=== PATIENT | female | born 1995 | race Caucasian/White ===

== ENCOUNTER 2020-04-02 04:32 | Emergency (ER) | payer BC, OTHER ==
[2020-04-02] MEDS ORDERED: Acetaminophen/HYDROcodone 325-5 MG Tab PO ONE ×2 (04:33→04:59)
[2020-04-02] MEDS ORDERED: Ketorolac 60 MG/2 ML SDV IM ONE (04:58)
[2020-04-02] MEDS ORDERED: hydrOXYzine HCl 50 MG/ML SDV IM ONE (04:59)
--- NOTE | 2020-04-02 05:19 | EDM.PDOC ---
ED HPI GENERAL MEDICAL PROBLEM - General Chief Complaint: Headache Stated Complaint: MIGRAINE Time Seen by Provider: 04/02/20 05:05 Source of Information: Reports: Patient History Limitations: Reports: No Limitations - History of Present Illness INITIAL COMMENTS - FREE TEXT/NARRATIVE: Patient presented to the ED because of headache over the bi frontal area, throbbing with associated nausea and photophobia. She was seen at the clinic yesterday and was given Zofran ODT 4 mg and toradol 60 mg with mild improvement of her headache. there is n fever/chills, or neck stiffness. Treatments REGIONAL COORDINATOR: Reports: NSAIDS Headache Pain Score (Numeric/FACES): 9 - Related Data Allergies Allergy/AdvReac Type Severity Reaction Status Date / Time cephalexin monohydrate Allergy Hives Verified 04/02/20 04:39 [From Keflex] Home Meds: Home Meds SUMAtriptan 100 mg PO ASDIRECTED PRN 04/23/16 [History] FLUoxetine HCl [Prozac] 40 mg PO BEDTIME 04/02/20 [History] Linaclotide [Linzess] 145 mg DAILY 04/02/20 [History] Norethindrone-Ethin. 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 Musculoskeletal History: Reports: None Neurological History: Reports: Concussion, Headaches, Chronic, Migraines Psychiatric History: Reports: Anxiety, Depression Dermatologic History: Reports: Other (See Below) Other Dermatologic History: Had an I&D done on a facial cyst that was positive for MRSA - Infectious Disease History Infectious Disease History: Reports: MRSA, Shingles - Past Surgical History HEENT Surgical History: Reports: Adenoidectomy, Oral Surgery, Tonsillectomy GI Surgical History: Reports: Colonoscopy Musculoskeletal Surgical History: Reports: Arthroscopic Knee, Other (See Below) Other Musculoskeletal Surgeries/Procedures:: bilat knee scope x2 Social & Family History - Family History Family Medical History: Noncontributory - Tobacco Use Smoking Status *Q: Former Smoker Years of Tobacco use: 4 Used Tobacco, but Quit: Yes Month/Year Tobacco Last Used: 2019 - Caffeine Use Caffeine Use: Reports: Coffee, Soda - Recreational Drug Use Recreational Drug Use: No - Living Situation & Occupation Living situation: Reports: Single ED ROS GENERAL - Review of Systems Review Of Systems: See Below Constitutional: Reports: No Symptoms HEENT: Reports: No Symptoms Respiratory: Reports: No Symptoms Cardiovascular: Reports: No Symptoms Endocrine: Reports: No Symptoms GI/Abdominal: Reports: Nausea : Reports: No Symptoms Musculoskeletal: Reports: No Symptoms Skin: Reports: No Symptoms Neurological: Reports: Headache Psychiatric: Reports: No Symptoms - Physical Exam Exam: See Below Exam Limited By: No Limitations General Appearance: Alert, No Apparent Distress Eye Exam: Bilateral Eye: PERRL Ears: Normal External Exam, Normal Canal, Hearing Grossly Normal Nose: Normal Inspection, Normal Mucosa Throat/Mouth: Normal Inspection, Normal Lips, Normal Teeth Head Exam: Atraumatic, Normocephalic Neck: Normal Inspection, Supple, Non-Tender, Full Range of Motion Respiratory/Chest: No Respiratory Distress, Lungs Clear, Normal Breath Sounds Cardiovascular: Normal Peripheral Pulses, Regular Rate, Rhythm, No Edema, No Gallop GI/Abdominal: Normal Bowel Sounds, Soft, Non-Tender, No Organomegaly, No Distention Neuro Exam (Abbreviated): Alert, Oriented, CN II-XII Intact, Normal Cognition, Normal Gait, Normal Reflexes, No Motor/Sensory Deficits Course - Vital Signs Text/Narrative:: Toradol 60 mg IM Vistaril 50 mg IM [place] 5/325, 2 po x1 Last Recorded V/S: Last Vital Signs Temp 36.8 C 04/02/20 04:32 Pulse 96 04/02/20 04:32 Resp 18 04/02/20 04:32 BP 108/69 04/02/20 04:32 Pulse Ox 98 04/02/20 04:32 - Orders/Labs/Meds Meds: Medications Discontinued Medications Generic Name Dose Route Start Last Admin Trade Name Freq PRN Reason Stop Dose Admin Hydrocodone Bitart/Acetaminophen 2 tab 04/02/20 04:59 04/02/20 05:05 [place] 325-5 Mg PO 04/02/20 05:00 2 tab ONETIME ONE Administration Hydroxyzine HCl 50 mg 04/02/20 04:59 04/02/20 05:06 Vistaril IM 04/02/20 05:00 50 mg ONETIME ONE Administration Ketorolac Tromethamine 60 mg 04/02/20 04:58 04/02/20 05:06 Toradol IM 04/02/20 04:59 60 mg ONETIME ONE Administration Departure - Departure Time of Disposition: 05:45 Disposition: Home, Self-Care 01 Condition: Good Clinical Impression: Migraine Qualifiers: Migraine type: without aura Status migrainosus presence: without status migrainosus Intractability: not intractable Qualified Code(s): G43.009 - Migraine without aura, not intractable, without status migrainosus - Discharge Information Prescriptions: hydrOXYzine pamoate [Vistaril] 50 mg PO Q6H PRN #30 cap PRN Reason: Nausea Instructions: Migraine Headache Referrals: Mary Mcdaniel NP [Primary Care Provider] - Forms: ED Department Discharge Additional Instructions: Please read discharge instructions on migraine Take ibuprofen 800 mg with tylenol 1000 mg every 8 hours as needed for pain Vistaril 50 mg every 6 hours as needed for nausea [place] 5/325, 1-2 tablets every 4-6 hrs as needed for pain. Take [place] with Ibuprofen for better pain relief. Follow up as needed Sepsis Event Note (ED) - Evaluation Sepsis Screening Result: No Definite Risk - Focused Exam Vital Signs: Vital Signs Temp Pulse Resp BP Pulse Ox 04/02/20 04:32 36.8 C 96 18 108/69 98
[2020-04-02 05:47] VITALS: BP 100/61; PULSE 86
== END 2020-04-02 05:38 | disposition home or self-care (01) ==
LOC: FB.ED 04:32
DX: G43.009 Migraine without aura, not intractable, without status migrainosus (principal); F41.9 Anxiety disorder, unspecified; F32.9 Major depressive disorder, single episode, unspecified; Z87.891 Personal history of nicotine dependence; Z88.1 Allergy status to other antibiotic agents; Z79.899 Other long term (current) drug therapy
CPT/HCPCS: 96372; 99283; A9270; J1885; J3410

== ENCOUNTER 2020-04-30 21:15 | Emergency (ER) | payer BC ==
[2020-04-30] MEDS ORDERED: Ondansetron 8 MG Tab.DIS PO ONE (21:46)
[2020-04-30] MEDS ORDERED: Ketorolac 60 MG/2 ML SDV IM ONE (21:47)
[2020-04-30] MEDS ORDERED: diphenhydrAMINE 50 MG/ML SDV IM ONE (21:53)
[2020-04-30] MEDS ORDERED: Cyclobenzaprine 10 MG Tab PO ONE (21:54)
--- NOTE | 2020-04-30 22:05 | EDM.PDOC ---
ED HPI GENERAL MEDICAL PROBLEM - General Chief Complaint: Headache Stated Complaint: MIGRAINE Time Seen by Provider: 04/30/20 21:30 Source of Information: Reports: Patient History Limitations: Reports: No Limitations - History of Present Illness INITIAL COMMENTS - FREE TEXT/NARRATIVE: has had right side RODRIGUEZ behind the right eye for the past one week. Today it got worse with pain in the posterior neck with radiation to the occipital region and pain behind the eye, states similar to prior migraine symptoms. Has taken Vistaril , tylenol, states she could not find Imitrex Onset: Today Onset Date: 04/23/20 Duration: Getting Worse Location: Reports: Head Quality: Reports: Ache, Dull Severity: Moderate - Related Data Allergies Allergy/AdvReac Type Severity Reaction Status Date / Time cephalexin monohydrate Allergy Hives Verified 04/02/20 04:39 [From Keflex] Home Meds: Home Meds SUMAtriptan 100 mg PO ASDIRECTED PRN 04/23/16 [History] FLUoxetine HCl [Prozac] 40 mg PO BEDTIME 04/02/20 [History] Linaclotide [Linzess] 145 mg DAILY 04/02/20 [History] Norethindrone-Ethin. 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 Musculoskeletal History: Reports: None Neurological History: Reports: Concussion, Headaches, Chronic, Migraines Psychiatric History: Reports: Anxiety, Depression Dermatologic History: Reports: Other (See Below) Other Dermatologic History: Had an I&D done on a facial cyst that was positive for MRSA - Infectious Disease History Infectious Disease History: Reports: MRSA, Shingles - Past Surgical History HEENT Surgical History: Reports: Adenoidectomy, Oral Surgery, Tonsillectomy GI Surgical History: Reports: Colonoscopy Musculoskeletal Surgical History: Reports: Arthroscopic Knee, Other (See Below) Other Musculoskeletal Surgeries/Procedures:: bilat knee scope x2 Social & Family History - Family History Family Medical History: Noncontributory - Caffeine Use Caffeine Use: Reports: Coffee, Soda - Living Situation & Occupation Living situation: Reports: Single ED ROS GENERAL - Review of Systems Review Of Systems: See Below Constitutional: Reports: No Symptoms HEENT: Reports: No Symptoms Respiratory: Reports: No Symptoms Cardiovascular: Reports: No Symptoms Endocrine: Reports: No Symptoms GI/Abdominal: Reports: No Symptoms Neurological: Reports: Headache Psychiatric: Reports: No Symptoms Hematologic/Lymphatic: Reports: No Symptoms Immunologic: Reports: No Symptoms - Physical Exam Exam: See Below Exam Limited By: No Limitations General Appearance: Alert, WD/WN, No Apparent Distress Eye Exam: Bilateral Eye: EOMI Ears: Normal External Exam Nose: Normal Inspection Throat/Mouth: Normal Inspection, Normal Oropharynx Head Exam: Atraumatic, Normocephalic Neck: Supple, Non-Tender Respiratory/Chest: Lungs Clear, Normal Breath Sounds Cardiovascular: Regular Rate, Rhythm GI/Abdominal: Soft, Non-Tender Neuro Exam (Abbreviated): Alert, Oriented, CN II-XII Intact Back Exam: Normal Inspection, Full Range of Motion Extremities: Normal Inspection, Normal Range of Motion Course - Orders/Labs/Meds Orders: Active Orders 24 hr Category Date Time Status Cyclobenzaprine [Flexeril] Med 04/30/20 21:54 Once 10 mg PO ONETIME ONE diphenhydrAMINE [Benadryl] Med 04/30/20 21:53 Once 25 mg IM ONETIME ONE Meds: Medications Discontinued Medications Generic Name Dose Route Start Last Admin Trade Name Freq PRN Reason Stop Dose Admin Ketorolac Tromethamine 60 mg 04/30/20 21:47 Toradol IM 04/30/20 21:48 ONETIME ONE Ondansetron HCl 8 mg 04/30/20 21:46 Zofran Odt PO 04/30/20 21:47 ONETIME ONE Departure - Departure Time of Disposition: 10:10 Disposition: Home, Self-Care 01 Condition: Good Clinical Impression: Migraine - Discharge Information *PRESCRIPTION DRUG MONITORING PROGRAM REVIEWED*: Not Applicable *COPY OF PRESCRIPTION DRUG MONITORING REPORT IN PATIENT ABDULKADIR: Not Applicable Referrals: Mary Mcdaniel NP [Primary Care Provider] - Forms: ED Department Discharge Additional Instructions: Continue with home medications as prescribed - My Orders Last 24 Hours: My Active Orders 04/30/20 21:53 diphenhydrAMINE [Benadryl] 25 mg IM ONETIME ONE 04/30/20 21:54 Cyclobenzaprine [Flexeril] 10 mg PO ONETIME ONE - Assessment/Plan Last 24 Hours: My Active Orders 04/30/20 21:53 diphenhydrAMINE [Benadryl] 25 mg IM ONETIME ONE 04/30/20 21:54 Cyclobenzaprine [Flexeril] 10 mg PO ONETIME ONE
[2020-05-01 01:22] VITALS: BP 116/52; PULSE 74
== END 2020-04-30 22:30 | disposition home or self-care (01) ==
LOC: FB.ED 21:15
DX: G43.909 Migraine, unspecified, not intractable, without status migrainosus (principal); F41.9 Anxiety disorder, unspecified; F32.9 Major depressive disorder, single episode, unspecified; Z88.1 Allergy status to other antibiotic agents; Z79.899 Other long term (current) drug therapy
CPT/HCPCS: 96372; 99283; A9270; J1200; J1885

== ENCOUNTER 2020-08-08 21:27 | Emergency (ER) | payer BC ==
[2020-08-08] MEDS: Sodium Chloride 0.9% 10 ML Syringe FLUSH PRN (21:50)
[2020-08-08] MEDS: Sodium Chloride 0.9% 1,000 ML IV SCH (21:55)
[2020-08-08] MEDS: Ondansetron 4 MG/2 ML SDV IVPUSH ONE (21:56)
--- NOTE | 2020-08-08 21:57 | EDM.PDOC ---
ED HPI GENERAL MEDICAL PROBLEM - General Chief Complaint: PATENT CHEMIST Problem Stated Complaint: POST OP PAIN Time Seen by Provider: 08/08/20 21:40 Source of Information: Reports: Patient History Limitations: Reports: No Limitations - History of Present Illness INITIAL COMMENTS - FREE TEXT/NARRATIVE: pt had D&c today has lower abd cramps minimal bleeding feeling weak , tired , Looks pale had toradol and ibuprofen for pain , states pain still not well controlled Onset: Today Onset Date: 08/08/20 Duration: Getting Worse Location: Reports: Abdomen, Back, Pelvis Quality: Reports: Ache, Dull Severity: Moderate Improves with: Reports: None, Heat Therapy Worsens with: Reports: Movement Associated Symptoms: Reports: Malaise, Nausea/Vomiting, Weakness Treatments FISCAL ACCOUNTING CLERK: Reports: NSAIDS Abdominal Pain Score (Numeric/FACES): 7 - Related Data Allergies Allergy/AdvReac Type Severity Reaction Status Date / Time cephalexin monohydrate Allergy Hives Verified 04/30/20 22:52 [From Keflex] Home Meds: Home Meds SUMAtriptan 100 mg PO ASDIRECTED PRN 04/23/16 [History] FLUoxetine HCl [Prozac] 40 mg PO BEDTIME 04/02/20 [History] Linaclotide [Linzess] 145 mg PO DAILY 04/02/20 [History] Norethindrone-Ethin. Estradiol [Dasetta 1-35-28 Tablet] 1 tab PO ASDIRECTED 04/02/20 [History] Topiramate [Topamax] 50 mg PO BEDTIME 04/02/20 [History] busPIRone HCl [Buspirone HCl] 15 mg PO BEDTIME 04/02/20 [History] hydrOXYzine pamoate [Vistaril] 50 mg PO Q6H PRN #30 cap 04/02/20 [Rx] Ketorolac [Toradol] 10 mg PO Q6H PRN #10 tab 08/08/20 [Rx] Ondansetron [Zofran ODT] 4 mg PO Q6H PRN #20 tab.dis 08/08/20 [Rx] Past Medical History - Past Health History Medical/Surgical History: Denies Medical/Surgical History Gastrointestinal History: Reports: Chronic Constipation, Other (See Below) Other Gastrointestinal History: slow transient constipation 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 CHEMIST 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 Musculoskeletal History: Reports: None Neurological History: Reports: Concussion, Headaches, Chronic, Migraines Psychiatric History: Reports: Anxiety, Depression Dermatologic History: Reports: Other (See Below) Other Dermatologic History: Had an I&D done on a facial cyst that was positive for MRSA - Infectious Disease History Infectious Disease History: Reports: MRSA, Novel Coronavirus, Shingles - Past Surgical History HEENT Surgical History: Reports: Adenoidectomy, Oral Surgery, Tonsillectomy GI Surgical History: Reports: Colonoscopy Musculoskeletal Surgical History: Reports: Arthroscopic Knee, Other (See Below) Other Musculoskeletal Surgeries/Procedures:: bilat knee scope x2 Social & Family History - Family History Family Medical History: No Pertinent Family History - Caffeine Use Caffeine Use: Reports: Coffee, Soda - Living Situation & Occupation Living situation: Reports: Single ED ROS GENERAL - Review of Systems Review Of Systems: See Below Constitutional: Reports: Chills, Malaise, Weakness HEENT: Reports: No Symptoms Respiratory: Reports: No Symptoms Cardiovascular: Reports: Lightheadedness Endocrine: Reports: Fatigue GI/Abdominal: Reports: Abdominal Pain (lower abd pain) Musculoskeletal: Reports: No Symptoms, Back Pain. Denies: Shoulder Pain Skin: Reports: No Symptoms Neurological: Reports: No Symptoms Psychiatric: Reports: Anxiety, Mood Lability Hematologic/Lymphatic: Reports: No Symptoms Immunologic: Reports: No Symptoms ED EXAM, RENAL/ - Physical Exam Exam: See Below Exam Limited By: No Limitations General Appearance: Alert, WD/WN Eye Exam: Bilateral Eye: Abnormal EOM Ears: Normal External Exam Nose: Normal Inspection Throat/Mouth: Normal Oropharynx Head: Atraumatic Neck: Supple, Lymphadenopathy (R) Respiratory/Chest: No Respiratory Distress, Lungs Clear Cardiovascular: Normal Peripheral Pulses, Regular Rate, Rhythm GI/Abdominal: Normal Bowel Sounds, Tender (in the suprapubic region) Back Exam: Full Range of Motion Extremities: Normal Range of Motion, No Pedal Edema Psychiatric: Normal Mood Skin Exam: Dry, Intact Course - Vital Signs Last Recorded V/S: Last Vital Signs Temp 36.8 C 08/08/20 21:30 Pulse 75 08/08/20 21:30 Resp 16 08/08/20 21:30 BP 104/68 08/08/20 21:30 Pulse Ox 98 08/08/20 21:30 - Orders/Labs/Meds Orders: Active Orders 24 hr Category Date Time Status Sodium Chloride 0.9% [Normal Saline] 1,000 ml Med 08/08/20 22:00 Active IV ASDIRECTED Sodium Chloride 0.9% [Saline Flush] Med 08/08/20 21:50 Active 10 ml FLUSH ASDIRECTED PRN Medication Orders Sodium Chloride (Normal Saline) 1,000 mls @ 999 mls/hr IV ASDIRECTED SHEY Last Admin: 08/08/20 21:55 Dose: 999 mls/hr Documented by: RAYSHAWN Sodium Chloride (Saline Flush) 10 ml FLUSH ASDIRECTED PRN PRN Reason: IV Use Last Admin: 08/08/20 21:50 Dose: 10 ml Documented by: RAYSHAWN Labs: Laboratory Tests 08/08/20 08/08/20 Range/Units 22:00 22:00 WBC 9.8 (3.0-10.3) x10-3/uL RBC 4.15 (3.60-5.20) x10(6)uL Hgb 12.0 (11.4-15.5) g/dL Hct 35.4 (34.2-48.2) % MCV 85.2 (76.7-100.5) fL MCH 28.9 (23.9-33.9) pg MCHC 33.9 (31.9-34.8) g/dL RDW 13.7 (12.3-16.5) % Plt Count 296 (151-488) x10(3)uL MPV 8.4 (7.1-12.4) fL Add Manual Diff Yes Neutrophils % (Manual) 84 H (46-82) % Band Neutrophils % 1 (0-6) % Lymphocytes % (Manual) 10 L (13-37) % Monocytes % (Manual) 5 (4-12) % Sodium 138 (135-145) mmol/L Potassium 4.0 (3.5-5.3) mmol/L Chloride 103 (100-110) mmol/L Carbon Dioxide 22 (21-32) mmol/L BUN 11 (7-18) mg/dL Creatinine 0.8 (0.55-1.02) mg/dL Est Cr Clr Drug Dosing 109.38 mL/min Estimated GFR (MDRD) > 60 (>60) BUN/Creatinine Ratio 13.8 (9-20) Glucose 163 H (80-116) mg/dL Calcium 8.2 L (8.6-10.2) mg/dL Meds: Medications Generic Name Dose Route Start Last Admin Trade Name Praneeth PRN Reason Stop Dose Admin Sodium Chloride 1,000 mls @ 999 mls/hr 08/08/20 22:00 08/08/20 21:55 Normal Saline IV 999 mls/hr ASDIRECTED SHEY Administration Sodium Chloride 10 ml 08/08/20 21:50 08/08/20 21:50 Saline Flush FLUSH 10 ml ASDIRECTED PRN Administration IV Use Discontinued Medications Generic Name Dose Route Start Last Admin Trade Name Praneeth PRN Reason Stop Dose Admin Hydrocodone Bitart/Acetaminophen 1 tab 08/08/20 21:55 08/08/20 21:59 [place] 325-5 Mg PO 08/08/20 21:56 1 tab ONETIME ONE Administration Clindamycin Phosphate 600 mg/ 54 mls @ 150 mls/hr 08/08/20 21:49 08/08/20 22:28 Dextrose/Water IV 08/08/20 22:10 Not Given ONETIME ONE Clindamycin/Sodium Chloride 600 mg in 50 mls @ 100 mls/hr 08/08/20 23:00 08/08/20 22:25 Cleocin In Ns 600 Mg/50 Ml IV 08/08/20 23:29 100 mls/hr ONETIME ONE Administration Ondansetron HCl 4 mg 08/08/20 21:50 08/08/20 21:56 Zofran IVPUSH 08/08/20 21:51 4 mg ONETIME ONE Administration - Re-Assessments/Exams Free Text/Narrative Re-Assessment/Exam: 08/08/20 22:09 pt givev IVF , clindamycin, hydrocodone and zofran Departure - Departure Time of Disposition: 23:30 Disposition: Home, Self-Care 01 Condition: Fair Clinical Impression: Complete , Dehydration symptoms, Abdominal pain - Discharge Information *PRESCRIPTION DRUG MONITORING PROGRAM REVIEWED*: Not Applicable *COPY OF PRESCRIPTION DRUG MONITORING REPORT IN PATIENT ABDULKADIR: Not Applicable Prescriptions: Ketorolac [Toradol] 10 mg PO Q6H PRN #10 tab PRN Reason: Pain (Moderate 4-6) Ondansetron [Zofran ODT] 4 mg PO Q6H PRN #20 tab.dis PRN Reason: Nausea Instructions: Abdominal Pain, Adult, [id number] Referrals: Mary Mcdaniel NP [Primary Care Provider] - Forms: ED Department Discharge Sepsis Event Note (ED) - Focused Exam Vital Signs: Vital Signs Temp Pulse Resp BP Pulse Ox 08/08/20 21:30 36.8 C 75 16 104/68 98 - My Orders Last 24 Hours: My Active Orders 08/08/20 21:50 Sodium Chloride 0.9% [Saline Flush] 10 ml FLUSH ASDIRECTED PRN 08/08/20 22:00 Sodium Chloride 0.9% [Normal Saline] 1,000 ml IV ASDIRECTED - Assessment/Plan Last 24 Hours: My Active Orders 08/08/20 21:50 Sodium Chloride 0.9% [Saline Flush] 10 ml FLUSH ASDIRECTED PRN 08/08/20 22:00 Sodium Chloride 0.9% [Normal Saline] 1,000 ml IV ASDIRECTED
[2020-08-08] MEDS: Acetaminophen/HYDROcodone 325-5 MG Tab PO ONE (21:59)
[2020-08-08] MEDS: Clindamycin in 0.9 % Sod Chlor 600 MG/50 ML BAG IV ONE (22:25)
[2020-08-08] MEDS: Clindamycin Phosphate 600 MG in Dextrose 5% in Water 50 ML IV ONE ×2 (22:28)
[2020-08-09 02:29] VITALS: BP 111/58; PULSE 93
== END 2020-08-08 23:30 | disposition home or self-care (01) ==
LOC: FB.ED 21:27
DX: O03.9 Complete or unspecified spontaneous abortion without complication (principal); Z88.1 Allergy status to other antibiotic agents; Z79.899 Other long term (current) drug therapy
CPT/HCPCS: 36415; 80048; 85025; 96365; 96375; 99284; 99284-25; A9270-GY; J2405; J3490; J7030

== ENCOUNTER 2021-05-17 17:15 | Emergency (ER) | payer OTHER, BC ==
[2021-05-17] MEDS ORDERED: Ondansetron 4 MG Tab.DIS PO STA (17:57)
[2021-05-17] MEDS ORDERED: Ketorolac 30 MG/ML SDV IM STA (17:57)
--- NOTE | 2021-05-17 18:20 | EDM.PDOC ---
ED HPI GENERAL MEDICAL PROBLEM - General Chief Complaint: Headache Stated Complaint: MIGRAINE Time Seen by Provider: 05/17/21 17:30 Source of Information: Reports: Patient History Limitations: Reports: No Limitations - History of Present Illness INITIAL COMMENTS - FREE TEXT/NARRATIVE: Patient presented to the D because of migraine. The headache is over the bitemporal area, 8/10, with associated nausea and photophobia. She took flexeril, imitrex and Exedrin PO without significant relief. There is no fever, chills or neck stiffness. headache Pain Score (Numeric/FACES): 9 - Related Data Allergies Allergy/AdvReac Type Severity Reaction Status Date / Time cephalexin monohydrate Allergy Hives Verified 05/17/21 18:01 [From Keflex] Home Meds: Home Meds Cyclobenzaprine [Flexeril] 10 mg PO TID PRN 05/17/21 [History] FLUoxetine HCl [Fluoxetine HCl] 40 mg PO DAILY 05/17/21 [History] Ketorolac [Toradol] 10 mg PO Q8H PRN #15 tab 05/17/21 [Rx] Lubiprostone 8 mcg PO BID 05/17/21 [History] Ondansetron [Zofran ODT] 4 mg PO Q4H PRN #5 tab.dis 05/17/21 [Rx] busPIRone [Buspar] 10 mg PO BID 05/17/21 [History] Past Medical History - Past Health History Medical/Surgical History: Denies Medical/Surgical History Gastrointestinal History: Reports: Chronic Constipation, Other (See Below) Other Gastrointestinal History: slow transient constipation 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: Musculoskeletal History: Reports: None Neurological History: Reports: Concussion, Headaches, Chronic, Migraines Psychiatric History: Reports: Anxiety, Depression Dermatologic History: Reports: Other (See Below) Other Dermatologic History: Had an I&D done on a facial cyst that was positive for MRSA - Infectious Disease History Infectious Disease History: Reports: MRSA, Novel Coronavirus, Shingles - Past Surgical History HEENT Surgical History: Reports: Adenoidectomy, Oral Surgery, Tonsillectomy GI Surgical History: Reports: Colonoscopy Musculoskeletal Surgical History: Reports: Arthroscopic Knee, Other (See Below) Other Musculoskeletal Surgeries/Procedures:: bilat knee scope x2 Social & Family History - Family History Family Medical History: No Pertinent Family History - Caffeine Use Caffeine Use: Reports: Soda - Living Situation & Occupation Living situation: Reports: Single ED ROS GENERAL - Review of Systems Review Of Systems: See Below Constitutional: Reports: No Symptoms HEENT: Reports: No Symptoms Respiratory: Reports: No Symptoms Cardiovascular: Reports: No Symptoms Endocrine: Reports: No Symptoms GI/Abdominal: Reports: Nausea : Reports: No Symptoms Musculoskeletal: Reports: No Symptoms Skin: Reports: No Symptoms Neurological: Reports: Headache Psychiatric: Reports: No Symptoms Hematologic/Lymphatic: Reports: No Symptoms ED EXAM, NEURO - Physical Exam Exam: See Below Exam Limited By: No Limitations General Appearance: Alert, No Apparent Distress Eye Exam: Bilateral Eye: PERRL Ears: Normal External Exam, Normal Canal Nose: Normal Inspection, Normal Mucosa, No Blood Throat/Mouth: Normal Inspection, Normal Lips, Normal Teeth Head Exam: Atraumatic, Normocephalic Neck: Normal Inspection, Supple, Non-Tender, Full Range of Motion Respiratory/Chest: No Respiratory Distress, Lungs Clear, Normal Breath Sounds, No Accessory Muscle Use, Chest Non-Tender Cardiovascular: Normal Peripheral Pulses, Regular Rate, Rhythm, No Edema, No Gallop, No JVD, No Murmur, No Rub GI/Abdominal: Normal Bowel Sounds, Soft, Non-Tender, No Organomegaly, No Distention, No Abnormal Bruit, No Mass Neurological: Alert, Normal Mood/Affect, Normal Dorsiflexion Course - Vital Signs Text/Narrative:: Toradol 60 mg IM x1 Zofran ODT 4 mg PO x1 Last Recorded V/S: Last Vital Signs Temp 36.8 C 05/17/21 17:25 Pulse 68 05/17/21 17:25 Resp 18 05/17/21 17:25 BP 125/74 05/17/21 17:25 Pulse Ox 97 05/17/21 17:25 - Orders/Labs/Meds Meds: Medications Discontinued Medications Generic Name Dose Route Start Last Admin Trade Name Praneeth PRN Reason Stop Dose Admin Ketorolac Tromethamine 60 mg 05/17/21 17:57 05/17/21 18:05 Ketorolac 30 Mg/Ml Sdv IM 05/17/21 17:58 60 mg NOW STA Administration Ondansetron HCl 4 mg 05/17/21 17:57 05/17/21 18:05 Ondansetron 4 Mg Tab.Dis PO 05/17/21 17:58 4 mg NOW STA Administration Departure - Departure Time of Disposition: 18:30 Disposition: Home, Self-Care 01 Condition: Good Clinical Impression: Migraine - Discharge Information Prescriptions: Ketorolac [Toradol] 10 mg PO Q8H PRN #15 tab PRN Reason: Pain Ondansetron [Zofran ODT] 4 mg PO Q4H PRN #5 tab.dis PRN Reason: Nausea Instructions: Migraine Headache, [id number] Referrals: Mary Mcdaniel NP [Primary Care Provider] - Forms: ED Department Discharge Additional Instructions: Please read discharge instructions on Migraine Toradol 10 mg with tylenol 1000 mg every 8 hours as needed for pain Zofran ODT 4 mg every 4 hours as needed for nausea Follow up as needed
[2021-05-17 19:42] VITALS: BP 125/74; PULSE 68
== END 2021-05-17 18:25 | disposition home or self-care (01) ==
LOC: FB.ED 17:15
DX: G43.909 Migraine, unspecified, not intractable, without status migrainosus (principal); Z88.1 Allergy status to other antibiotic agents
CPT/HCPCS: 96372; 99283; A9270; J1885

== ENCOUNTER 2021-09-20 21:30 | Emergency (ER) | payer OTHER, BC ==
[2021-09-20 21:48] VITALS: BP 121/70; PULSE 80
[2021-09-20] MEDS ORDERED: Ondansetron 4 MG Tab.DIS PO STA (21:59)
[2021-09-20] MEDS ORDERED: Ketorolac 30 MG/ML SDV IM STA (21:59)
== END 2021-09-20 22:45 | disposition home or self-care (01) ==
LOC: FB.ED 21:30
DX: G43.909 Migraine, unspecified, not intractable, without status migrainosus (principal); Z88.1 Allergy status to other antibiotic agents
CPT/HCPCS: 96372; 99283; J1885; Q0162

== ENCOUNTER 2021-11-02 21:34 | Emergency (ER) | payer BC, OTHER ==
[2021-11-02] MEDS ORDERED: Ketorolac 30 MG/ML SDV IM ONE (21:51)
[2021-11-02 23:48] VITALS: BP 115/70; PULSE 58
== END 2021-11-02 23:30 | disposition home or self-care (01) ==
LOC: FB.ED 21:34
DX: K58.9 Irritable bowel syndrome, unspecified (principal); F55.2 Abuse of laxatives; Z88.1 Allergy status to other antibiotic agents
CPT/HCPCS: 36415; 74019; 80053; 81001; 81025; 83690; 85025; 86140; 96372; 99284; J1885

== ENCOUNTER 2022-04-04 19:27 | Emergency (ER) | payer BC, OTHER ==
[2022-04-04] MEDS ORDERED: Ketorolac 30 MG/ML SDV IM STA (19:49)
[2022-04-04] MEDS ORDERED: Ondansetron 4 MG Tab.DIS PO STA (19:49)
[2022-04-04 21:22] VITALS: BP 109/78; PULSE 67
== END 2022-04-04 20:07 | disposition home or self-care (01) ==
LOC: FB.ED 19:27
DX: G43.909 Migraine, unspecified, not intractable, without status migrainosus (principal); Z88.1 Allergy status to other antibiotic agents; Z86.16 Personal history of COVID-19; Z79.899 Other long term (current) drug therapy
CPT/HCPCS: 96372; 99283; J1885; Q0162

== ENCOUNTER 2022-10-30 19:33 | Emergency (ER) | payer OTHER ==
[2022-10-30] MEDS ORDERED: Ondansetron 4 MG/2 ML SDV IM ONE (20:08)
[2022-10-30] MEDS ORDERED: Ketorolac 30 MG/ML SDV IM ONE (20:08)
[2022-10-30] MEDS ORDERED: diphenhydrAMINE 50 MG/ML SDV IM ONE (20:08)
[2022-10-30 21:03] VITALS: BP 123/77; PULSE 82
== END 2022-10-30 20:31 | disposition home or self-care (01) ==
LOC: FB.ED 19:33
DX: G43.909 Migraine, unspecified, not intractable, without status migrainosus (principal); Z88.1 Allergy status to other antibiotic agents; Z86.16 Personal history of COVID-19
CPT/HCPCS: 96372; 99283

== ENCOUNTER 2023-07-23 20:22 | Emergency (ER) | payer OTHER ==
[2023-07-23] MEDS ORDERED: Ketorolac 30 MG/ML SDV IVPUSH ONE (20:42)
[2023-07-23] MEDS ORDERED: Ondansetron 4 MG/2 ML SDV IVPUSH ONE (20:42)
[2023-07-23] MEDS ORDERED: Sodium Chloride 0.9% 1,000 ML IV SCH (20:45)
[2023-07-23] MEDS ORDERED: diphenhydrAMINE 50 MG/ML SDV IVPUSH ONE (20:48)
[2023-07-23 21:11] LABS: BASOPHILS ABSOLUTE AUTO 0.1 x10-3/uL (0.0-0.1); BASOPHILS PERCENT AUTO 1.1 % (0.2-1.5); EOSINOPHILS ABSOLUTE AUTO 0.2 x10-3/uL (0.0-0.8); EOSINOPHILS PERCENT AUTO 2.6 % (0.6-8.1); HEMATOCRIT 37.4 % (34.2-48.2); HEMOGLOBIN 12.7 g/dL (11.4-15.5); LYMPHOCYTES ABSOLUTE AUTO 3.1 x10-3/uL (1.0-4.4); LYMPHOCYTES PERCENT AUTO 38.4 % (18.4-52.1); MEAN CORPUSCULAR HEMOGLOBIN 28.1 pg (23.9-33.9); MEAN CORPUSCULAR HGB CONC 34.1 g/dL (31.9-34.8); MEAN CORPUSCULAR VOLUME 82.3 fL (76.7-100.5); MEAN PLATELET VOLUME 8.6 fL (7.1-12.4); MONOCYTES ABSOLUTE AUTO 0.5 x10-3/uL (0.3-1.0); MONOCYTES PERCENT AUTO 6.5 % (4.4-15.7); NEUTROPHILS ABSOLUTE AUTO 4.1 x10-3/uL (1.5-6.3); NEUTROPHILS PERCENT AUTO 51.4 % (30.8-76.2); PLATELET COUNT,PLT 326 x10(3)uL (151-488); RED BLOOD CELL COUNT 4.54 x10(6)uL (3.60-5.20); RED CELL DISTRIBUTION WIDTH 14.3 % (12.3-16.5)
[2023-07-23 21:13] LABS: BLOOD UREA NITROGEN,BUN 5 mg/dL (7-18); BUN/CREATININE RATIO 7.1 (9-20); CALCIUM 8.3 mg/dL (8.6-10.2); CARBON DIOXIDE,CO2 27 mmol/L (21-32); CHLORIDE,CL 103 mmol/L (100-110); CREATININE 0.7 mg/dL (0.55-1.02); EST CRCL DRUG DOSING (CG) 121.78 mL/min; ESTIMATED GFR 121 mL/min (>60); GLUCOSE RANDOM 87 mg/dL (80-116); POTASSIUM,K 3.3 mmol/L (3.5-5.3); SODIUM,NA 138 mmol/L (135-145)
[2023-07-23] MEDS ORDERED: Potassium Chloride 20 MEQ Tab.ER PO ONE (21:40)
[2023-07-23] MEDS ORDERED: Acetaminophen/oxyCODONE 325-5 MG Tab PO STA (21:49)
[2023-07-23 22:13] VITALS: BP 114/64; PULSE 62
== END 2023-07-23 22:12 | disposition home or self-care (01) ==
LOC: FB.ED 20:22
DX: G43.909 Migraine, unspecified, not intractable, without status migrainosus (principal); E87.6 Hypokalemia; Z86.16 Personal history of COVID-19; Z88.1 Allergy status to other antibiotic agents; Z79.899 Other long term (current) drug therapy
CPT/HCPCS: 36415; 80048; 85025; 96361; 96374; 96375; 99283; 99283-25; A9270-GY; J1200; J1885; J2405; J7030

== ENCOUNTER 2023-07-24 17:37 | Emergency (ER) | payer OTHER ==
[2023-07-24] MEDS ORDERED: Prochlorperazine 10 MG/2 ML SDV IM ONE (19:01)
[2023-07-24] MEDS ORDERED: Ketorolac 30 MG/ML SDV IM ONE (19:01)
[2023-07-24] MEDS ORDERED: Acetaminophen/oxyCODONE 325-5 MG Tab PO STA (19:25)
[2023-07-24 22:20] VITALS: BP 116/78; PULSE 68
== END 2023-07-24 20:10 | disposition home or self-care (01) ==
LOC: FB.ED 17:37
DX: G43.909 Migraine, unspecified, not intractable, without status migrainosus (principal); Z86.16 Personal history of COVID-19; Z79.899 Other long term (current) drug therapy; Z88.1 Allergy status to other antibiotic agents
CPT/HCPCS: 96372; 99283; A9270-GY; J0780; J1885

== ENCOUNTER 2023-08-04 19:22 | Emergency (ER) | payer OTHER ==
[2023-08-04 20:26] LABS: BASOPHILS ABSOLUTE AUTO 0.1 x10-3/uL (0.0-0.1); BASOPHILS PERCENT AUTO 0.7 % (0.2-1.5); EOSINOPHILS ABSOLUTE AUTO 0.1 x10-3/uL (0.0-0.8); EOSINOPHILS PERCENT AUTO 1.5 % (0.6-8.1); HEMATOCRIT 37.6 % (34.2-48.2); HEMOGLOBIN 12.6 g/dL (11.4-15.5); LYMPHOCYTES ABSOLUTE AUTO 2.6 x10-3/uL (1.0-4.4); LYMPHOCYTES PERCENT AUTO 31.5 % (18.4-52.1); MEAN CORPUSCULAR HEMOGLOBIN 27.8 pg (23.9-33.9); MEAN CORPUSCULAR HGB CONC 33.6 g/dL (31.9-34.8); MEAN CORPUSCULAR VOLUME 82.8 fL (76.7-100.5); MEAN PLATELET VOLUME 8.7 fL (7.1-12.4); MONOCYTES ABSOLUTE AUTO 0.6 x10-3/uL (0.3-1.0); MONOCYTES PERCENT AUTO 7.3 % (4.4-15.7); NEUTROPHILS ABSOLUTE AUTO 4.9 x10-3/uL (1.5-6.3); PLATELET COUNT,PLT 341 x10(3)uL (151-488); RED BLOOD CELL COUNT 4.54 x10(6)uL (3.60-5.20); RED CELL DISTRIBUTION WIDTH 14.4 % (12.3-16.5); WHITE BLOOD CELL COUNT,WBC 8.4 x10-3/uL (3.0-10.3)
[2023-08-04 20:31] LABS: BLOOD UREA NITROGEN,BUN 9 mg/dL (7-18); BUN/CREATININE RATIO 12.9 (9-20); CALCIUM 8.9 mg/dL (8.6-10.2); CARBON DIOXIDE,CO2 25 mmol/L (21-32); CHLORIDE,CL 104 mmol/L (100-110); CREATININE 0.7 mg/dL (0.55-1.02); ESTIMATED GFR 121 mL/min (>60); GLUCOSE RANDOM 115 mg/dL (80-116); POTASSIUM,K 3.4 mmol/L (3.5-5.3); SODIUM,NA 136 mmol/L (135-145)
[2023-08-04] MEDS ORDERED: Iopamidol 755 Mg/ML 100 ML Bottle IV SCH (21:00)
[2023-08-05 01:25] VITALS: BP 118/77; PULSE 70
== END 2023-08-04 22:05 | disposition home or self-care (01) ==
LOC: FB.ED 19:22
DX: R06.02 Shortness of breath (principal); Z88.8 Allergy status to other drugs, medicaments and biological substances; Z79.899 Other long term (current) drug therapy; Z86.16 Personal history of COVID-19
CPT/HCPCS: 36415; 71275; 80048; 84484; 85025; 99283; 99285; Q9967

== ENCOUNTER 2023-10-30 23:50 | Emergency (ER) | payer OTHER ==
[2023-10-30] MEDS ORDERED: Ondansetron 4 MG Tab.DIS PO ONE (23:51)
[2023-10-31] MEDS: Ketorolac 30 MG/ML SDV IM ONE (00:13)
[2023-10-31] MEDS: Ondansetron 4 MG Tab.DIS PO ONE (00:14)
[2023-10-31 00:31] VITALS: BP 131/93; PULSE 73
== END 2023-10-31 01:41 | disposition home or self-care (01) ==
LOC: FB.ED 23:50
DX: G43.909 Migraine, unspecified, not intractable, without status migrainosus (principal); Z86.16 Personal history of COVID-19; Z79.899 Other long term (current) drug therapy; Z88.1 Allergy status to other antibiotic agents
CPT/HCPCS: 96372; 99283; J1885; Q0162

== ENCOUNTER 2023-10-31 19:18 | Emergency (ER) | payer OTHER ==
[2023-10-31 19:32] VITALS: BP 117/83; PULSE 76
[2023-10-31] MEDS: Ketorolac 30 MG/ML SDV IM ONE (19:44)
[2023-10-31] MEDS: hydrOXYzine HCl 50 MG/ML SDV IM ONE (19:45)
== END 2023-10-31 20:27 | disposition home or self-care (01) ==
LOC: FB.ED 19:18
DX: G43.909 Migraine, unspecified, not intractable, without status migrainosus (principal); Z88.1 Allergy status to other antibiotic agents; Z86.16 Personal history of COVID-19; Z79.899 Other long term (current) drug therapy
CPT/HCPCS: 96372; 99283; J1885; J3410; Q0162

== ENCOUNTER 2024-03-24 20:06 | Emergency (ER) | payer OTHER ==
[2024-03-24] MEDS ORDERED: Sodium Chloride 0.9% 10 ML Syringe FLUSH PRN (20:23)
[2024-03-24 20:24] VITALS: BP 131/90; PULSE 76
[2024-03-24] MEDS: Ondansetron 4 MG/2 ML SDV IVPUSH ONE (20:42)
[2024-03-24] MEDS: Ketorolac 30 MG/ML SDV IVPUSH ONE (20:43)
[2024-03-24] MEDS: Dexamethasone 4 MG/ML 5 ML MDV IVPUSH ONE (20:47)
== END 2024-03-24 21:21 | disposition home or self-care (01) ==
LOC: FB.ED 20:06
DX: G43.109 Migraine with aura, not intractable, without status migrainosus (principal); Z86.16 Personal history of COVID-19; Z79.899 Other long term (current) drug therapy; Z88.1 Allergy status to other antibiotic agents
CPT/HCPCS: 96374; 96375; 99283; J1100; J1885; J2405

== ENCOUNTER 2024-09-23 18:23 | Emergency (ER) | payer BC ==
[2024-09-23 18:37] VITALS: BP 127/85; PULSE 104
[2024-09-23] MEDS: Ketorolac 30 MG/ML SDV IM ONE (18:51)
[2024-09-23] MEDS: diphenhydrAMINE 50 MG/ML SDV IM ONE (18:51)
[2024-09-23] MEDS: Ondansetron 4 MG Tab.DIS PO ONE (18:52)
== END 2024-09-23 19:03 | disposition home or self-care (01) ==
LOC: FB.ED 18:23
DX: G43.119 Migraine with aura, intractable, without status migrainosus (principal); Z88.1 Allergy status to other antibiotic agents; Z79.899 Other long term (current) drug therapy; Z79.890 Hormone replacement therapy; Z86.16 Personal history of COVID-19
CPT/HCPCS: 96372; 99283; J1200; J1885; Q0162

== ENCOUNTER 2024-11-26 19:25 | Emergency (ER) | payer BC, OTHER ==
[2024-11-26 19:54] LABS: BASOPHILS ABSOLUTE AUTO 0.1 x10-3/uL (0.0-0.1); BASOPHILS PERCENT AUTO 0.8 % (0.2-1.5); EOSINOPHILS ABSOLUTE AUTO 0.3 x10-3/uL (0.0-0.8); EOSINOPHILS PERCENT AUTO 2.3 % (0.6-8.1); HEMATOCRIT 40.5 % (34.2-48.2); LYMPHOCYTES ABSOLUTE AUTO 3.5 x10-3/uL (1.0-4.4); LYMPHOCYTES PERCENT AUTO 31.8 % (18.4-52.1); MEAN CORPUSCULAR HEMOGLOBIN 27.5 pg (23.9-33.9); MEAN CORPUSCULAR HGB CONC 34.5 g/dL (31.9-34.8); MEAN CORPUSCULAR VOLUME 79.6 fL (76.7-100.5); MEAN PLATELET VOLUME 8.1 fL (7.1-12.4); MONOCYTES ABSOLUTE AUTO 0.9 x10-3/uL (0.3-1.0); MONOCYTES PERCENT AUTO 8.2 % (4.4-15.7); NEUTROPHILS ABSOLUTE AUTO 6.2 x10-3/uL (1.5-6.3); NEUTROPHILS PERCENT AUTO 56.9 % (30.8-76.2); PLATELET COUNT,PLT 416 x10(3)uL (151-488); RED BLOOD CELL COUNT 5.09 x10(6)uL (3.60-5.20); RED CELL DISTRIBUTION WIDTH 14.2 % (12.3-16.5)
[2024-11-26 20:05] LABS: BLOOD UREA NITROGEN,BUN 7 mg/dL (7-18); CALCIUM 8.7 mg/dL (8.6-10.2); CARBON DIOXIDE,CO2 27 mmol/L (21-32); CHLORIDE,CL 103 mmol/L (100-110); EST CRCL DRUG DOSING (CG) 83.74 mL/min; ESTIMATED GFR 78 mL/min (>60); GLUCOSE RANDOM 87 mg/dL (80-116); POTASSIUM,K 3.4 mmol/L (3.5-5.3); SODIUM,NA 138 mmol/L (135-145)
[2024-11-26 20:16] LABS: BILIRUBIN,URINE NEGATIVE (NEGATIVE); GLUCOSE,URINE NORMAL (NORMAL); KETONES,URINE NEGATIVE (NEGATIVE); LEUKOCYTE ESTERASE,URINE NEGATIVE (NEGATIVE); NITRITE,URINE NEGATIVE (NEGATIVE); OCCULT BLOOD,URINE NEGATIVE (NEGATIVE); PROTEIN,URINE NEGATIVE (NEGATIVE); UROBILINOGEN,URINE NORMAL (NEGATIVE)
[2024-11-26] MEDS: Sodium Chloride 0.9% 10 ML Syringe FLUSH PRN (20:16)
[2024-11-26 20:17] LABS: ALANINE AMINOTRANSFERASE,ALT 35 U/L (12-36); ALBUMIN 3.7 g/dL (3.5-5.2); ALKALINE PHOSPHATASE 128 IU/L (56-112); ASPARTATE AMNIOTRANSFERASE,AST 24 IU/L (5-25); BILIRUBIN TOTAL 0.3 mg/dL (0.1-1.3); PROTEIN TOTAL,TP 7.5 g/dL (6.0-8.0)
[2024-11-26] MEDS: Ondansetron 4 MG/2 ML SDV IVPUSH ONE (20:17)
[2024-11-26 20:19] LABS: APPEARANCE,URINE CLEAR (CLEAR); COLOR,URINE YELLOW (YELLOW); RBC,URINE 0-5 (0-5); WBC,URINE 0-5 (0-5)
[2024-11-26 20:20] LABS: BACTERIA,URINE FEW (NS); SQUAMOUS EPITHELIAL CELLS,UR FEW (NS,R,O)
[2024-11-26] MEDS: Ketorolac 30 MG/ML SDV IVPUSH ONE (20:20)
[2024-11-26] MEDS: Iopamidol 755 Mg/ML 100 ML Bottle IV ONE (20:32)
[2024-11-26] MEDS: Sodium Chloride 0.9% 1,000 ML IV ONE (20:33)
[2024-11-26 21:56] VITALS: BP 129/88; PULSE 71
== END 2024-11-26 22:04 | disposition home or self-care (01) ==
LOC: FB.ED 19:25
DX: R10.30 Lower abdominal pain, unspecified (principal); Z88.1 Allergy status to other antibiotic agents; Z79.890 Hormone replacement therapy; Z79.899 Other long term (current) drug therapy; Z86.16 Personal history of COVID-19
CPT/HCPCS: 36415; 74177; 80053; 81001; 81025; 85025; 86140; 96374; 96375; 99284; J1885; J2405; J7030; Q9967

== ENCOUNTER 2025-01-27 18:56 | Emergency (ER) | payer BC ==
[2025-01-27 19:09] VITALS: BP 124/78; PULSE 75
[2025-01-27] MEDS ORDERED: Sodium Chloride 0.9% 10 ML Syringe FLUSH PRN (19:17)
[2025-01-27] MEDS: Ondansetron 4 MG/2 ML SDV IVPUSH ONE (19:29)
[2025-01-27] MEDS: diphenhydrAMINE 50 MG/ML SDV IVPUSH ONE (19:30)
[2025-01-27] MEDS: Ketorolac 30 MG/ML SDV IVPUSH ONE ×2 (19:31→20:32)
[2025-01-27] MEDS: Dexamethasone 4 MG/ML 5 ML MDV IVPUSH ONE (20:32)
== END 2025-01-27 21:18 | disposition home or self-care (01) ==
LOC: FB.ED 18:56
DX: G43.909 Migraine, unspecified, not intractable, without status migrainosus (principal); E03.9 Hypothyroidism, unspecified; E66.9 Obesity, unspecified; Z79.899 Other long term (current) drug therapy; Z79.890 Hormone replacement therapy; Z88.1 Allergy status to other antibiotic agents; Z68.27 Body mass index [BMI] 27.0-27.9, adult
CPT/HCPCS: 96361; 96374; 96375; 96376; 99283; J1100; J1200; J1885; J2405; J7030

== ENCOUNTER → 2025-05-16 | Day surgery (SDC) | payer BC ==
[~2025-05-16] MED LIST: Lactated Ringers 1,000 ML IV SCH; Sodium Chloride 0.9% 10 ML Syringe FLUSH PRN
[2025-05-16 09:31] VITALS: BP 119/86; PULSE 82
== END ==
LOC: FB.SDS 09:04
PROVIDERS: ATTEND Surgery
DX: Z53.8 Procedure and treatment not carried out for other reasons (principal)
CPT/HCPCS: 81025

== ENCOUNTER 2025-05-23 07:58 | Emergency (ER) | payer BC ==
[2025-05-23] MEDS: Ondansetron 4 MG Tab.DIS PO ONE (08:55)
[2025-05-23 09:16] LABS: BASOPHILS ABSOLUTE AUTO 0.1 x10-3/uL (0.0-0.1); BASOPHILS PERCENT AUTO 0.7 % (0.2-1.5); EOSINOPHILS ABSOLUTE AUTO 0.3 x10-3/uL (0.0-0.8); EOSINOPHILS PERCENT AUTO 3.0 % (0.6-8.1); LYMPHOCYTES ABSOLUTE AUTO 1.9 x10-3/uL (1.0-4.4); LYMPHOCYTES PERCENT AUTO 19.0 % (18.4-52.1); MEAN PLATELET VOLUME 8.7 fL (7.1-12.4); MONOCYTES ABSOLUTE AUTO 0.6 x10-3/uL (0.3-1.0); MONOCYTES PERCENT AUTO 5.9 % (4.4-15.7); NEUTROPHILS ABSOLUTE AUTO 7.2 x10-3/uL (1.5-6.3); NEUTROPHILS PERCENT AUTO 71.4 % (30.8-76.2); PLATELET COUNT,PLT 375 x10(3)uL (151-488); RED BLOOD CELL COUNT 4.99 x10(6)uL (3.60-5.20); RED CELL DISTRIBUTION WIDTH 13.9 % (12.3-16.5); WHITE BLOOD CELL COUNT,WBC 10.0 x10-3/uL (3.0-10.3)
[2025-05-23 09:25] VITALS: BP 100/73; PULSE 87
[2025-05-23 09:26] LABS: BLOOD UREA NITROGEN,BUN 7 mg/dL (7-18); CARBON DIOXIDE,CO2 26 mmol/L (21-32); CHLORIDE,CL 104 mmol/L (100-110); CREATININE 0.7 mg/dL (0.55-1.02); EST CRCL DRUG DOSING (CG) 119.62 mL/min; ESTIMATED GFR 120 mL/min (>60); GLUCOSE RANDOM 111 mg/dL (80-116); POTASSIUM,K 3.5 mmol/L (3.5-5.3); SODIUM,NA 140 mmol/L (135-145)
[2025-05-23 09:32] LABS: A/G RATIO 0.9; ALANINE AMINOTRANSFERASE,ALT 62 U/L (12-36); ASPARTATE AMNIOTRANSFERASE,AST 26 IU/L (5-25); BILIRUBIN TOTAL 0.3 mg/dL (0.1-1.3); PROTEIN TOTAL,TP 7.5 g/dL (6.0-8.0)
== END 2025-05-23 10:03 | disposition home or self-care (01) ==
LOC: FB.ED 07:58
DX: R55 Syncope and collapse (principal); E03.9 Hypothyroidism, unspecified; F17.200 Nicotine dependence, unspecified, uncomplicated; Z88.1 Allergy status to other antibiotic agents; Z79.890 Hormone replacement therapy; Z79.899 Other long term (current) drug therapy; Z86.16 Personal history of COVID-19; H81.10 Benign paroxysmal vertigo, unspecified ear
CPT/HCPCS: 36415; 70450; 80053; 85025; 99284; A9270; Q0162